=== PATIENT | female | born 1970 | race Caucasian/White ===

== ENCOUNTER 2024-12-29 10:24 | Emergency (ER) | payer BC, SELFPAY ==
[2024-12-29] MEDS ORDERED: Lidocaine 1% (PF) 30 ML VIAL ONE (10:59)
== END 2024-12-29 11:20 | disposition home or self-care (01) ==
LOC: NAV ERS 10:24
DX: L73.9 Follicular disorder, unspecified (principal)
CPT/HCPCS: 99283